=== PATIENT | female | born 1940 | race Caucasian/White ===

== ENCOUNTER 2020-09-01 16:48 | Emergency (ER) | payer MEDICARE, OTHER ==
[~2020-09-01] VITALS: Ht 157.5 cm; Wt 65.8 kg
--- NOTE | 2020-09-01 17:04 | Emergency Room Report ---
History of Present Illness General Chief Complaint: Lower Extremity Injury Source: Patient Present Illness HPI Disclaimer: Please note that this report is being documented using [employer] technology. This can lead to erroneous entry secondary to incorrect interpretation by the dictating instrument. HPI: 80-year-old female presents for evaluation of ankle injury after a fall. The patient missed a step in the high shoes causing her to outwardly rotated her ankle. She was able to catch her self and did not suffer any head injury or other injury. Reports prior fracture of either the tibia or the fibula approximately 1 year ago this was treated nonsurgically. Is able to bear weight but noted worsening pain and swelling throughout the day. The fall occurred approximately 9:30 AM. Denies numbness or tingling. Stable to dorsiflex and plantarflex the foot. Denies pain in the midfoot, knee, hip or anywhere else in the body. Does not take blood thinners. 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 EOMI. Resp: Normal work of breathing Skin: Intact. No abrasions, laceration or rash over the exposed skin MSK: Normal tone and bulk. Moving all extremities. Moderate edema over the right lateral malleolus with tenderness over the posterior aspect. Able to flex and dorsiflex. Limited eversion and inversion. 2+ PT and DP pulses. No midfoot tenderness. No tenderness over the medial malleolus. Neuro: Awake and alert. Mentating appropriately Procedures Splinting Splinting : Consent: Verbal Location: Right lower extremity Hand-Made Type: plaster Splint: Posterior with sugar tong Pre-Proc Neuro Vasc Exam: normal Post-Proc Neuro Vasc Exam: normal Patient Tolerated: Well Complications: None Medical Decision Making Diagnostic Impression: Primary Impression: Bimalleolar fracture of right ankle ER Course Is an 80-year-old female presenting for evaluation of ankle injury after a fall earlier this morning. No other injury sustained. No head injury. Concern for fracture dislocation x-ray obtained. X-rays concerning for nondisplaced bi malleolar fracture. Patient placed in short posterior with sugar tong splint. Neurovascularly intact after splinting. Provided with crutches. Provided with CD imaging. She follows up with orthopedic surgeon, Dr. Noriega, who did her prior operations and will see him Friday morning. Stable for outpatient follow-up. Instructed on proper cast care and how to use crutches. Instructed to return with new or worsening symptoms. She understands and agrees with the treatment plan. Other X-Ray Diagnostic Results Other X-Ray Diagnostic Results : X-Ray ordered: Right ankle # of Views/Limited Vs Complete: 3 View Indication: Pain EP Interpretation: Yes Interpretation: no dislocation, other - Previously healed distal fibula fracture. Acute nondisplaced bimalleolar fracture. Soft tissue edema noted Impression: Other - Acute bimalleolar fracture Electronically Signed by: Electronically signed by Dr. Kyle Mancilla MD Last Vital Signs Date Time Temp Pulse Resp B/P (MAP) Pulse Ox O2 Delivery O2 Flow Rate FiO2 09/01/20 16:58 98.2 100 19 160/86 (110) 99 Room Air Disposition: HOME, SELF-CARE Condition: Stable Scripts Ibuprofen* (MOTRIN*) 600 Mg Tablet 600 MG ORAL Q8H PRN for FOR PAIN, #30 TAB 0 Refills Prov: Kyle Mancilla MD 09/01/20 Hydrocodone Bit/Acetaminophen 5-325* (NORCO 5-325 TABLET*) 1 Each Tablet 1 TAB ORAL Q6H PRN for FOR PAIN, #20 TAB 0 Refills Prov: Kyle Mancilla MD 09/01/20 Kyle Mancilla MD Sep 01, 2020 17:04
--- NOTE | 2020-09-01 17:05 | NUR ---
ED Nurse Note: Pt wheeled in from car c/o mechanical fall and reporting right ankle pain and swelling. Respirations even and unlabored on room air. Vitals stable as documented. A+Ox4. speaking in complete sentences.
[2020-09-01] MEDS ORDERED: HYDROcodone/Acetamin 5/325 tab ORAL ONE (17:15)
[2020-09-01] MEDS ORDERED: NORCO 5-325 TA1 EAC1 ORAL (17:40)
[2020-09-01] MEDS ORDERED: IBUPROFEN600 M1 ORAL (17:40)
[2020-09-01 18:20] VITALS: BP 154/82
--- NOTE | 2020-09-01 18:20 | NUR ---
ED Nurse Note: Pt's leg splinted by ED MD. Pt instructed on how to use crutches. Pt cleared by health care Provider for discharge. DC instructions/prescription were given and explained to pt and verbalized understanding of teachings. All medical devices such as ID band removed. Pt is AAO x4, ambulatory with crutches and left with all personal belongings.
--- NOTE | 2020-09-01 19:01 | Diagnostic Imaging Report ---
EXAM: XR Right Ankle Complete, 3 or More Views CLINICAL HISTORY: INJ TECHNIQUE: Frontal, lateral and oblique views of the right ankle. COMPARISON: No relevant prior studies available. FINDINGS: Bones/joints: There is a nondisplaced bimalleolar fracture. There is also evidence of an old fracture of the distal fibula No dislocation. Soft tissues: There is a large amount of soft tissue edema around the ankle joint. IMPRESSION: 1. Nondisplaced bimalleolar fracture. 2. Large amount of soft tissue edema. 3. Additionally seen is old fracture of the distal fibula.
== END 2020-09-01 18:20 | disposition home or self-care (01) ==
LOC: EMR 17:19
DX: S82.844A Nondisplaced bimalleolar fracture of right lower leg, initial encounter for closed fracture (principal); W19.XXXA Unspecified fall, initial encounter; Y92.9 Unspecified place or not applicable; E78.00 Pure hypercholesterolemia, unspecified; I10 Essential (primary) hypertension
CPT/HCPCS: 29515; 99283